=== PATIENT | female | born 1980 | race Caucasian/White ===

== ENCOUNTER 2024-01-10 05:17 | Emergency (ER) | payer OTHER ==
[~2024-01-10] VITALS: Ht 170.2 cm; Wt 84.4 kg
[2024-01-10 05:44] VITALS: BP 162/103; TEMP 98.5; O2SAT 98
[2024-01-10] MEDS ORDERED: NAPR-1164 PO (06:18)
[2024-01-10] MEDS ORDERED: PENI500T PO (06:18)
[2024-01-10] MEDS ORDERED: IBUPROFEN 400 MG TABLET ONE (06:19)
[2024-01-10] MEDS: IBUPROFEN 400 MG TABLET PO ONE (06:23)
[2024-01-10] MEDS: PENICILLIN V POTASSIUM 500 MG TABLET PO ONE (06:23)
== END 2024-01-10 06:30 | disposition home or self-care (01) ==
LOC: ER 05:22
DX: K04.7 Periapical abscess without sinus (principal); I10 Essential (primary) hypertension; Z88.1 Allergy status to other antibiotic agents; Z88.2 Allergy status to sulfonamides